=== PATIENT | female | born 1980 | race Two or more races ===

== ENCOUNTER 2024-03-16 20:59 | Inpatient (IN) | payer OTHER ==
[~2024-03-16] VITALS: Ht 172.7 cm; Wt 86.2 kg
[~2024-03-16 20:59] MED LIST: DILTIAZEM 24HR240 MG
[2024-03-16] MEDS ORDERED: CARDIZEM30 MG (21:10)
--- NOTE | 2024-03-16 21:10 | NUR ---
PTE ALERTA Y ORIENTADA X3, REFIERE HACE 2O MINUTOS DOLOR PELVICO LADO DERECHO SE CAROLA SV Y SE UBICA
[2024-03-16] MEDS ORDERED: MEPERIDINE HCL/PF 50 MG/ML VIAL IM STA (23:20)
[2024-03-16] MEDS ORDERED: PROMETHAZINE HCL 25 MG/ML AMPUL IM STA (23:21)
[2024-03-16] MEDS ORDERED: HYOSCYAMINE SULFATE 0.125 MG TAB.SUBL SL STA (23:22)
[2024-03-16 23:58] LABS: HEMATOCRIT 42.2 % (36.0-45.00); MEAN CELL VOLUME 83.9 fL (80.00-100.00); MEAN CORPUSCULAR HEMOGLOBIN 27.9 pg (27.00-32.0); MEAN CORPUSCULAR HGB CONC 33.3 g/dl (32.0-36.0); PLATELET COUNT 219 K/uL (150-450); RED BLOOD COUNT 5.03 M/uL (4.00-6.00)
--- NOTE | 2024-03-17 00:12 | NUR ---
PTE EVALUADA POR EL CONSTANTIN GALINDO QUIE ORDENA TRATAMIENTO LA CUAL SE EJCUTA SE MANTIENE BAJO OBSERVACION.
[2024-03-17 00:15] LABS: CALCIUM 8.8 mg/dL (8.5-10.1); CREATININE SERUM 0.79 mg/dL (0.55-1.02); GFR 78.7; POTASSIUM 3.93 mEq/L (3.5-5.1)
[2024-03-17 00:28] LABS: PH,URINE 6.5 (5.0-8.0); URINE BILIRRUBIN Negative (NEGATIVE); URINE BLOOD Large; URINE COLOR Yellow; URINE GLUCOSE Negative (NEGATIVE); URINE LEUKOCYTE Large; URINE NITRATE Positive; URINE UROBILINOGEN 0.2 E.U./dl
[2024-03-17 00:31] LABS: URINE BACTERIA 2236.4 uL (0.0-1933); URINE EPITHELIAL CELLS 24.8 uL (0.0-38.8); URINE WBC 4490.7 uL (0.0-23.2)
[2024-03-17 00:35] LABS: URINE APPEARANCE CLOUDY; URINE PROTEIN 100 (NEGATIVE)
[2024-03-17] MEDS ORDERED: MEPERIDINE HCL/PF 25 MG/ML VIAL IM STA (04:50)
[2024-03-17] MEDS ORDERED: CIPROFLOXACIN IN 5 % DEXTROSE 400 MG/200 ML PIGGYBAG IV STA (04:50)
[2024-03-17] MEDS ORDERED: SODIUM CHLORIDE 0.45 % 1,000 ML IV ONE (05:00)
--- NOTE | 2024-03-17 07:13 | NUR ---
PTE ALERTA Y ORIENTADA POR ANDREA ESFERAS CON BUEN PATRON RESPIRATORIO, TIENE CANALIZACION PATENTE TRICE DE EDEMA Y ERITEMA CON IV FLUIDS ESTABLECIDOS. PTE EN ADRIANA BAJA, BARANDAS ELEVADAS Y FRENOS AJUSTADOS.
[2024-03-17] MEDS ORDERED: levoFLOXacin IN DEXTROSE 5 % 150 ML IV SCH (11:09)
[2024-03-17] MEDS ORDERED: DILTIAZEM HCL 240 MG CAP.SR.24H PO SCH (13:01)
[2024-03-17] MEDS ORDERED: RINGERS SOLUTION,LACTATED 1,000 ML IV SCH (13:15)
[2024-03-17] MEDS ORDERED: FAMOTIDINE/PF 20 MG/2 ML VIAL IV SCH (21:00)
[2024-03-18] MEDS ORDERED: FF) FLECAINIDE ACETATE 50MG TAB PO SCH (09:00)
[2024-03-18] MEDS ORDERED: AZTREONAM 2,000 MG in 0.9 % SODIUM CHLORIDE 100 ML IV SCH (17:00)
[2024-03-18] MEDS ORDERED: CEFTRIAXONE SODIUM 2,000 MG in 0.9 % SODIUM CHLORIDE 100 ML IV SCH (17:00)
[2024-03-19 07:55] LABS: HEMATOCRIT 38.7 % (36.0-45.00); HEMOGLOBIN 12.9 g/dL (12.0-15.00); MEAN CELL VOLUME 84.4 fL (80.00-100.00); MEAN CORPUSCULAR HEMOGLOBIN 28.2 pg (27.00-32.0); MEAN CORPUSCULAR HGB CONC 33.4 g/dl (32.0-36.0); PLATELET COUNT 195 K/uL (150-450); RED BLOOD COUNT 4.59 M/uL (4.00-6.00); RED CELL DISTRIBUTION WIDTH 14.7 % (11.5-14.5)
[2024-03-19 08:44] LABS: ALBUMIN 3.2 gm/dL (3.4-5.0); BILIRUBIN TOTAL 0.29 mg/dL (0.3-1.2); CALCIUM 8.9 mg/dL (8.5-10.1); CREATININE SERUM 0.79 mg/dL (0.55-1.02); GFR 78.7; PHOSPHOROUS 3.9 mg/dL (2.5-4.9); POTASSIUM 4.4 mEq/L (3.5-5.1); TOTAL PROTEIN 6.2 gm/dL (6.4-8.2)
[2024-03-19] MEDS ORDERED: INTESTINEX680 M1 PO (12:10)
[2024-03-19] MEDS ORDERED: MACRODANTIN100 M1 PO (12:10)
== END 2024-03-19 14:16 | disposition home or self-care (01) | DRG 690 ==
LOC: ER 21:00 → SURH 03-17 13:34 → SEC-K 03-17 13:34 → SURH 03-17 15:20
PROVIDERS: ADMIT Internal Medicine; ATTEND Internal Medicine
PROC: BW21ZZZ Computerized Tomography (CT Scan) of Abdomen and Pelvis (ICD-10-PCS; principal; 2024-03-17)
DX: N39.0 Urinary tract infection, site not specified (principal); I10 Essential (primary) hypertension

== ENCOUNTER 2025-05-22 04:53 | Emergency (ER) | payer OTHER ==
[~2025-05-22] VITALS: Ht 170.2 cm; Wt 83.9 kg
[~2025-05-22 04:53] MED LIST changes: +CARDIZEM30 MG; +INTESTINEX680 M1 PO; +MACRODANTIN100 M1 PO
[2025-05-22] MEDS ORDERED: FLECAINIDE ACET50 MG PO (05:07)
[2025-05-22] MEDS ORDERED: FAMOTIDINE/PF 20 MG/2 ML VIAL IV PUSH STA (06:09)
[2025-05-22] MEDS ORDERED: PROMETHAZINE HCL 25 MG/ML AMPUL IM STA (06:10)
[2025-05-22 07:31] LABS: BASO % 0.3 % (0.1-1.2); EOS # 0.27 (0.04-0.54); EOS % 2.8 % (0.7-7.0); LYMPH # 2.28 (1.18-3.74); LYMPH % 24.0 % (19.3-53.1); MEAN PLATELET VOLUME 12.40 fl (9.4-12.4); MONO # 0.76 (0.24-0.82); MONO % 8.0 % (4.7-12.5); NEUT # 6.15 (1.56-6.13); NEUT % 64.7 % (34.0-71.1); RED CELL DISTRIBUTION WIDTH 14.7 % (11.6-14.4)
[2025-05-22 08:13] LABS: ALT/SGPT 21 U/L (12-78); AST/SGOT 18 U/L (15-37); BILIRUBIN TOTAL 0.31 mg/dL (0.3-1.2); BILIRUBIN,CONJUGATED < 0.10 mg/dL (0.0-0.2)
[2025-05-22] MEDS ORDERED: ORPHENADRINE CITRATE 30 MG/ML AMPUL IM ONE (09:45)
[2025-05-22] MEDS ORDERED: PROTONIX40 MG PO (09:45)
[2025-05-22] MEDS ORDERED: LEVSIN/SL0.125 MG SL (09:45)
== END 2025-05-22 09:47 | disposition home or self-care (01) ==
LOC: ER 04:53
PROVIDERS: General Practice
DX: R10.13 Epigastric pain (principal); R10.9 Unspecified abdominal pain; Z88.0 Allergy status to penicillin; Z88.6 Allergy status to analgesic agent; Z91.013 Allergy to seafood